=== PATIENT | female | born 1995 | race Caucasian/White ===

== ENCOUNTER 2016-09-06 18:12 | Emergency (ER) | payer OTHER ==
[~2016-09-06] VITALS: Ht 157.5 cm; Wt 61.8 kg
[2016-09-06] MEDS ORDERED: PREN-154 PO (18:33)
[2016-09-06 19:26] VITALS: BP 113/66
[2016-09-06] MEDS ORDERED: ACETAMINOPHEN 325 MG TABLET PO ONE (19:45)
[2016-09-06 20:29] LABS: APPEARANCE,URINE SLIGHTLY CLOUDY (CLEAR); GLUCOSE, URINE (UA) NEGATIVE (NEGATIVE); KETONES,URINE 40 mg/dL (NEGATIVE); OCCULT BLOOD,URINE NEGATIVE (NEGATIVE); PROTEIN,URINE NEGATIVE (NEGATIVE)
[2016-09-06 20:30] LABS: ADD UA MICROSCOPIC YES; LEUKOCYTE ESTERASE ,URINE TRACE (NEGATIVE)
[2016-09-06 20:31] LABS: RBC,URINE None Seen /HPF (0-2)
[2016-09-06 20:32] LABS: SQUAMOUS EPITHELIAL CELL,UR Rare /LPF (None Seen)
== END 2016-09-06 20:46 | disposition home or self-care (01) ==
LOC: EMS 18:13
DX: N39.0 Urinary tract infection, site not specified (principal)
CPT/HCPCS: 99283

== ENCOUNTER 2016-11-17 14:00 | Observation (INO) | payer OTHER ==
[~2016-11-17] VITALS: Ht 157.5 cm; Wt 64.0 kg
[~2016-11-17 14:00] MED LIST: PREN-154 PO
[2016-11-17 14:29] VITALS: BP 116/59
[2016-11-17] MEDS ORDERED: IRON-18 PO (14:32)
[2016-11-17] MEDS ORDERED: ACETAMINOPHEN 325 MG TABLET PO ONE (15:15)
== END 2016-11-17 15:25 | disposition home or self-care (01) ==
LOC: 4S 14:00
PROVIDERS: ADMIT Obstetrics & Gynecology Gynecology; ATTEND Obstetrics & Gynecology Gynecology
DX: O26.892 Other specified pregnancy related conditions, second trimester (principal); M54.5 Low back pain; Z3A.22 22 weeks gestation of pregnancy
CPT/HCPCS: 59025; G0378

== ENCOUNTER 2019-05-22 07:46 | Emergency (ER) | payer OTHER ==
[~2019-05-22] VITALS: Ht 157.5 cm; Wt 62.7 kg
[~2019-05-22 07:46] MED LIST changes: +IRON-18 PO
[2019-05-22] MEDS ORDERED: MULT-1214 PO (07:52)
[2019-05-22] MEDS ORDERED: MULT-952 PO (07:52)
[2019-05-22 08:00] VITALS: BP 137/85
== END 2019-05-22 08:43 | disposition home or self-care (01) ==
LOC: EMS 07:50
DX: M79.7 Fibromyalgia (principal); M41.9 Scoliosis, unspecified; Z79.899 Other long term (current) drug therapy